=== PATIENT | female | born 1970 | race Caucasian/White ===

== ENCOUNTER 2022-08-18 08:33 | Outpatient (CLI) | payer OTHER, SELFPAY ==
--- NOTE | 2022-08-18 08:40 | MM_ITS ---
WS: [id number] VIEWS: MLO and CC views both breasts. 3D digital tomosynthesis is also included in this exam. Comparison made with prior exam of 02/07/2013, 06/21/2014, 10/10/2015, 11/30/2016, 06/17/2018, 09/26/2019.. Findings: There was no sign of mass, architectural distortion or suspicious calcification in either breast. Sta ble appearing nodular densities in both breasts.Scattered fibroglandular densities MM/[place] [id number] Impression: BI-RADS: 2-Benign FOLLOW-UP: 1 Year Follow-up This mammogram was also analyzed by the Computer Aided Detection System R2 Imag e Material Flow Analyst.
== END 2022-08-18 08:34 | disposition home or self-care (01) ==
PROVIDERS: PCP Family Medicine; Visit Provider Family Medicine
DX: Z12.31 Encounter for screening mammogram for malignant neoplasm of breast (principal)
CPT/HCPCS: 77063; 77067

== ENCOUNTER 2022-11-11 07:28 | Day surgery (SDC) | payer OTHER, SELFPAY ==
[2022-11-09 09:39] VITALS: BMI 29.2
[2022-11-11 07:46] VITALS: BP 122/90; PULSE 82; RESP 18; TEMP 36.4; O2SAT 95
[2022-11-11] MEDS: sodium chloride 0.9% 1,000 ML 30 ML IV (07:53)
--- NOTE | 2022-11-11 08:09 | ANES.PREANE2 ---
Pre-Anesthetic Assessment Height/Weight: Height 1.6 m Weight 74.843 kg Temp Pulse Resp BP Pulse Ox O2 Del Method 97.6 F 82 18 122/90 95 11/11/22 07:46 11/11/22 07:46 11/11/22 07:46 11/11/22 07:46 11/11/22 07:46 11/11/22 07:46 Operation Date: 11/11/22 08:45 Proposed Procedures p [id number] Colonoscopy K92.1,Z12.11(Not Applicable) - Tino Benson DO Familial anesthetic complications: None Was Beta Roselia taken within 24 hours: N/A Was Clonidine taken within 24 hours: N/A Last intake: Intake Last Liquid Date 11/10/22 Last Liquid Time 23:45 Last Solid Date 11/09/22 Last Solid Time 22:00 Social No alcohol and No tobacco Exam alert, oriented x 3, clear to auscultation bilaterally and regular rate & rhythm Airway Mallampati: Class I Dentition: full History/ROS No significant complaints Anesthetic Plan ASA status: 1 Risk of > 500 ml blood loss (7ml/kg in children): No Medications/Allergies Home Medications Medication Instructions Recorded Confirmed Last Taken Type citalopram 10 mg tablet 10 mg PO DAILY 08/31/22 11/09/22 11/09/22 History ibuprofen 600 mg tablet (IBU) 600 mg PO Q8H PRN Pain 08/31/22 11/09/22 11/09/22 History multivitamin 1 tab PO DAILY 09/01/22 11/09/22 11/08/22 History calcium carbonate 600 mg-vitamin 1 tab PO DAILY 11/09/22 11/09/22 11/08/22 History D3 10 mcg (400 unit) tablet (Calcium 600 + D(3)) citalopram 20 mg tablet 20 mg PO DAILY 11/09/22 11/09/22 11/09/22 History Allergies Allergy/AdvReac Type Severity Reaction Status Date / Time No Known Allergies Allergy Unverified 09/01/22 08:46 Current Medications Generic Name Dose Route Start Last Admin Trade Name Freq PRN Reason Stop Dose Admin Sodium Chloride 1,000 mls @ 30 mls/hr 11/11/22 07:45 11/11/22 07:53 Sodium Chloride 0.9% IV 11/12/22 07:44 30 mls/hr .Q24H JOLIE Administration PFSH Anesthesia Surgical History No pertinent past surgical history Family History Brother Diabetes Mother Stroke Father Rheumatoid arteritis Cancer prostate Data Anesthesia Cardiac Studies: No Data to Display
--- NOTE | 2022-11-11 09:02 | PM.HP ---
Providers/Chief Complaint Primary Care Provider: Hope Leon MD Chief Complaint: Z12.11, K92.1 History of Present Illness Aileen Crowell is a 52 year old female here for her first screening colonoscopy Medications/Allergies Home Medications Medication Instructions Recorded Confirmed Last Taken Type citalopram 10 mg tablet 10 mg PO DAILY 08/31/22 11/09/22 11/09/22 History ibuprofen 600 mg tablet (IBU) 600 mg PO Q8H PRN Pain 08/31/22 11/09/22 11/09/22 History multivitamin 1 tab PO DAILY 09/01/22 11/09/22 11/08/22 History calcium carbonate 600 mg-vitamin 1 tab PO DAILY 11/09/22 11/09/22 11/08/22 History D3 10 mcg (400 unit) tablet (Calcium 600 + D(3)) citalopram 20 mg tablet 20 mg PO DAILY 11/09/22 11/09/22 11/09/22 History Allergies Allergy/AdvReac Type Severity Reaction Status Date / Time No Known Allergies Allergy Unverified 09/01/22 08:46 PFSH Acute PFSH: Surgical History No pertinent past surgical history Family History Brother Diabetes Mother Stroke Father Rheumatoid arteritis Cancer prostate Vitals/I&O/Wt Last Vital Signs Temp 97.6 F 11/11/22 07:46 Pulse 82 11/11/22 07:46 Resp 18 11/11/22 07:46 BP 122/90 11/11/22 07:46 Pulse Ox 95 11/11/22 07:46 O2 Del Method 11/11/22 07:46 Weight last 48 hrs Weight 165 lb A&P Assessment and plan (1) Colon cancer screening: Plan Colonoscopy Attestations Medical Necessity Statement*: Home Coding Level of Care Code Acute Code for Chg Fwd Diagnoses Colon cancer screening Z12.11
[2022-11-11 09:25] VITALS: BP 98/60; PULSE 71; RESP 16; TEMP 36.1; O2SAT 92
[2022-11-11 09:30] VITALS: BP 93/69; PULSE 72; RESP 18; O2SAT 95
[2022-11-11 09:40] VITALS: BP 110/80; PULSE 69; RESP 18; O2SAT 96
--- NOTE | 2022-11-11 13:41 | ANE.PACU2 ---
Inpatient post-anesthesia follow up: Airway intact: Yes Vital signs: Temperature 97.0 F Pulse Rate 69 Respiratory Rate 18 Blood Pressure 110/80 Pulse Oximetry 96 Oxygen Delivery Me thod Room Air Oxygen Flow Rate Fraction of Inspir ed Oxygen Hydration adequate: Yes Nausea and vomiting: No Pain level: 1 Mental status: Baseline
== END 2022-11-11 09:58 | disposition home or self-care (01) ==
PROVIDERS: PCP Family Medicine; Visit Provider Surgery
PROC: 0DJD8ZZ Inspection of Lower Intestinal Tract, Via Natural or Artificial Opening Endoscopic (ICD-10-PCS; CPT 45378; principal; 2022-11-11 08:45)
DX: Z12.11 Encounter for screening for malignant neoplasm of colon (principal); K92.1 Melena
CPT/HCPCS: 45378; J2704; J7030

== ENCOUNTER 2024-09-04 12:51 | Outpatient (CLI) | payer OTHER, SELFPAY ==
--- NOTE | 2024-09-04 12:53 | MM_ITS ---
WS: [id number] BILATERAL 3D TOMOSYNTHESIS DIGITAL SCREENING MAMMOGRAPHY WITH CAD CLINICAL INFORMATION: SCREENING HISTORY: Screening mammogram. No current complaints. COMPARISON: 2021 TECHNIQUE: Bilateral CC and MLO views. FINDINGS: Scattered fibroglandular densities bilaterally. No suspicious focal mass, asymmetry, calcifications, or architectural distortion. No evidence of malignancy. MM/MM scr BI tomosynthesis [id number] IMPRESSION: DENSITY: There are scattered areas of fibroglandular density. BI-RADS: 1 - Negative. FOLLOW UP: 1 Year Follow-up Recommend return to annual screening mammography.
== END 2024-09-04 12:52 | disposition home or self-care (01) ==
LOC: RAD 12:52
PROVIDERS: PCP Family Medicine; Visit Provider Family Medicine
DX: Z12.31 Encounter for screening mammogram for malignant neoplasm of breast (principal); R92.323 Mammographic fibroglandular density, bilateral breasts
CPT/HCPCS: 77063; 77067